=== PATIENT | female | born 1945 | race Caucasian/White ===

== ENCOUNTER → 2016-09-24 | Outpatient (CLI) | payer MEDICARE ==
--- NOTE | 2016-09-24 20:23 | WWHP ---
DATE OF DICTATION: 09/24/2016 CHIEF COMPLAINT: The patient is here for her routine gynecologic exam and mammogram. HISTORY OF PRESENT ILLNESS: This is a 71-year-old G2, P2 with an LMP of 2000. The patient is without gynecologic complaints and denies any postmenopausal bleeding. PAST MEDICAL HISTORY: Osteoporosis; she has declined medications for this. She denies any other medical problems. MEDICATIONS: Probiotic daily. ALLERGIES: NO KNOWN DRUG ALLERGIES. 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 SOCIAL HISTORY: She denies tobacco and drug use and has about one alcoholic drink per week. She has been a since 2006 and is not sexually active. 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 REVIEW OF SYSTEMS: Weight has been stable. She denies cardiac or GI problems. RESPIRATORY: She has recently gotten over a sinus infection. She denies maltreatment or falling. : She denies any significant problems with urinary leakage. PHYSICAL EXAM: Blood pressure 112/67. Height 5 feet 4-1/2 inches. Weight 134 pounds. Temperature 97.8, pulse 73. This is a well-developed, well-nourished white female who is alert and oriented x3, in no acute distress. HEENT is within normal limits. NECK: Supple without mass or thyromegaly. CHEST AND LUNGS: Clear to auscultation. HEART: Regular rate and rhythm. Breasts are without mass or discharge. Axillary exam is negative for adenopathy. BACK: Negative for CVA tenderness. ABDOMEN: Soft, nontender, without palpable masses. PELVIC EXAM: External genitalia reveal moderate atrophy without lesions. Cervix and vagina reveal mild to moderate atrophy without lesions. There is no evidence of prolapse. The uterus is mid position, non-gravid size and nontender. There are no palpable adnexal masses or tenderness. Rectovaginal exam is negative for mass or tenderness and is negative for occult blood. EXTREMITIES: Nontender. IMPRESSION: 1. A 71-year-old menopausal female with normal gynecologic exam. 2. History of osteoporosis; declining medication. PLAN: 1. Pap smear was performed. 2. Self breast examination was discussed. 3. Mammogram will be done today. 4. Osteoporosis management was discussed. I stressed the importance of adequate calcium, vitamin D and regular exercise. We have again discussed medical treatment for this, and she is declining this at this time. Will plan on repeating bone density test in one year. 5. She will consider flu shots in the fall, but she states she has not done this for many years and probably will not do this again. 6. She will return in one year.
--- NOTE | 2016-09-25 13:54 | MM ---
Reason for exam: screening (asymptomatic). Last mammogram was performed 1 year and 1 month ago. History: Patient is postmenopausal. Family history of premenopausal breast cancer in sister at age 44, breast cancer in mother at age 70, and breast cancer in aunt. Took hormonal contraceptives for 14 years beginning at age 20. Physical Findings: A clinical breast exam by your physician is recommended on an annual basis and results should be correlated with mammographic findings. MG 3D Screening Mammo W/Cad Bilateral CC and MLO view(s) were taken. Prior study comparison: September 05, 2015, bilateral MG 3d screening mammo w/cad. August 23, 2014, bilateral MG screening mammo w CAD. The breast tissue is heterogeneously dense. This may lower the sensitivity of mammography. Finding: There is a typically benign equal density, circumscribed oval mass in the upper outer quadrant, axillary tail position of the left breast, consistent with lymph nodes, increased number, for which a short term follow up is recommended. Increased nodularity left MLO axillary region, likely lymphadenopathy. ASSESSMENT: Probably benign, BI-RAD 3 RECOMMENDATION: Special view mammogram of the left breast in 6 months.
== END | disposition home or self-care (01) ==
LOC: WWCWWP 09:45
PROVIDERS: ATTEND Obstetrics & Gynecology
DX: Z12.31 Encounter for screening mammogram for malignant neoplasm of breast (principal)
CPT/HCPCS: 77063; G0202

== ENCOUNTER → 2017-03-27 | Outpatient (CLI) | payer MEDICARE ==
--- NOTE | 2017-03-27 11:08 | MM ---
Reason for exam: follow-up at short interval from prior study. Last mammogram was performed 6 months ago. History: Patient is postmenopausal. Family history of premenopausal breast cancer in sister at age 44, breast cancer in mother at age 70, and breast cancer in aunt. Took hormonal contraceptives for 14 years beginning at age 20. Physical Findings: Nurse did not find any significant physical abnormalities on exam. Prominent bilateral axilla nodes/or tissue, all soft, movable (nurse ts). MG 3D Diag Mammo W/Cad LT CC and MLO view(s) were taken of the left breast. Prior study comparison: September 24, 2016, bilateral MG 3d screening mammo w/cad. September 05, 2015, bilateral MG 3d screening mammo w/cad. The breast tissue is heterogeneously dense. This may lower the sensitivity of mammography. Stable benign calcifications. There is no discrete abnormality. These results were verbally communicated with the patient and result sheet given to the patient on 03/27/17. ASSESSMENT: Benign, BI-RAD 2 RECOMMENDATION: Return to routine screening mammogram schedule for both breasts. Back on schedule for September 2017.
== END | disposition home or self-care (01) ==
LOC: RADMAMWWP 10:11
PROVIDERS: ATTEND Obstetrics & Gynecology
DX: R92.8 Other abnormal and inconclusive findings on diagnostic imaging of breast (principal)
CPT/HCPCS: G0206; G0279

== ENCOUNTER → 2017-11-25 | Outpatient (CLI) | payer MEDICARE ==
[2017-11-25 14:10] VITALS: BP 115/66; PULSE 56; TEMP 97.8; BMI 20.9
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
--- NOTE | 2017-11-26 08:48 | BD ---
EXAMINATION TYPE: Axial Bone Density DATE OF EXAM: 11/25/2017 COMPARISON: 09/05/2015 CLINICAL HISTORY: Postmenopausal without hormone replacement therapy Height: 64.7 IN Weight: 133 LBS FRAX RISK QUESTIONS: History of Fracture in Adulthood: YES LT FOOT AGE 68 RISK FACTORS HISTORY OF: Active: YES Postmenopausal woman: AGE 55 MEDICATIONS: Additional Medications: CALCIUM, VIT D, EXAM MEASUREMENTS: Bone mineral densitometry was performed using the [employer] System. Bone mineral density as measured about the Lumbar spine is: ----- L1-L4(G/cm2): 0.998 T Score Values are as follows: ----- L2: -1.6 ----- L3: -1.5 ----- L4: -1.2 ----- L1-L4: -1.5 Bone mineral density has: Increased 2.7% since study of: 09/05/2015 Bone mineral density about the R hip (g/cm2): 0.752 Bone mineral density about the L hip (g/cm2): 0.751 T Score values are as follows: -----R Neck: -2.1 -----L Neck: -2.1 -----R Total: -1.8 -----L Total: -1.7 Bone mineral density has: Decreased -3.4% since study of: 09/05/2015 IMPRESSION: Osteopenia (T Score between -2.5 and -1). There is slightly increased risk of fracture and the patient may be considered for treatment. Re-Screen 2-5 years. NOTE: T-SCORE=SD OF THE YOUNG ADULT MEAN.
--- NOTE | 2017-11-27 11:06 | MM ---
Reason for exam: screening (asymptomatic). Last mammogram was performed 8 months ago. History: Patient is postmenopausal. Family history of premenopausal breast cancer in sister at age 44, breast cancer in mother at age 70, and breast cancer in aunt. Took hormonal contraceptives for 14 years beginning at age 20. Physical Findings: A clinical breast exam by your physician is recommended on an annual basis and results should be correlated with mammographic findings. MG 3D Screening Mammo W/Cad Bilateral CC and MLO view(s) were taken. Technologist: RT Brett (R)(M) Prior study comparison: March 27, 2017, left breast MG 3d diag mammo w/cad LT. September 24, 2016, bilateral MG 3d screening mammo w/cad. There are scattered fibroglandular densities. No significant changes when compared with prior studies. ASSESSMENT: Benign, BI-RAD 2 RECOMMENDATION: Routine screening mammogram of both breasts in 1 year.
--- NOTE | 2017-12-02 17:43 | P.PN ---
Progress Note - Text Progress Note Date: 12/02/17 OUTPATIENT FOLLOW-UP NOTE TEST(S)/RESULTS: bone density testing from age [age] showed osteopenia with minimal change from her 2016 bone density test. METHOD OF NOTIFICATION: patient was notified by phone. PATIENT COMMENTS: the patient understands these results and is not interested in medications at this time. DIAGNOSIS: osteopenia DISCUSSION: PLAN: I have stressed the importance of adequate calcium, vitamin D and regular exercise. She is declining medication for osteopenia. We will repeat this in 2 years. She will also return in one year for her annual exam.
== END | disposition home or self-care (01) ==
LOC: WWCWWP 13:29
PROVIDERS: ATTEND Obstetrics & Gynecology
DX: Z12.31 Encounter for screening mammogram for malignant neoplasm of breast (principal); M85.80 Other specified disorders of bone density and structure, unspecified site; Z78.0 Asymptomatic menopausal state
CPT/HCPCS: 77063; 77067; 77080

== ENCOUNTER → 2019-01-05 | Outpatient (CLI) | payer MEDICARE ==
[2019-01-05 10:45] VITALS: BP 119/71; PULSE 63; RESP 18; TEMP 98; BMI 20.9
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
--- NOTE | 2019-01-06 11:32 | MM ---
Reason for exam: screening (asymptomatic). Last mammogram was performed 1 year and 1 month ago. History: Patient is postmenopausal. Family history of premenopausal breast cancer in sister at age 44, breast cancer in mother at age 70, and breast cancer in aunt. Took hormonal contraceptives for 14 years beginning at age 20. Physical Findings: A clinical breast exam by your physician is recommended on an annual basis and results should be correlated with mammographic findings. MG 3D Screening Mammo W/Cad Bilateral CC and MLO view(s) were taken. Prior study comparison: November 25, 2017, bilateral MG 3d screening mammo w/cad. March 27, 2017, left breast MG 3d diag mammo w/cad LT. The breast tissue is heterogeneously dense. This may lower the sensitivity of mammography. There are benign appearing round calcifications in the right breast. There is no discrete abnormality. ASSESSMENT: Benign, BI-RAD 2 RECOMMENDATION: Routine screening mammogram of both breasts in 1 year.
== END | disposition home or self-care (01) ==
LOC: WWCWWP 10:31
PROVIDERS: ATTEND Obstetrics & Gynecology
DX: Z12.31 Encounter for screening mammogram for malignant neoplasm of breast (principal)
CPT/HCPCS: 77063; 77067

== ENCOUNTER → 2021-01-09 | Outpatient (CLI) | payer MEDICARE ==
[2021-01-09 13:09] VITALS: BP 150/83; PULSE 64; RESP 16; TEMP 98.3
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
--- NOTE | 2021-01-10 13:36 | BD ---
EXAMINATION TYPE: Axial Bone Density DATE OF EXAM: 01/09/2021 COMPARISON: 11/25/2017 CLINICAL HISTORY: Postmenopausal female. Height: 64 IN Weight: 125 LBS FRAX RISK QUESTIONS: History of Fracture in Adulthood: RT FOOT AGE 70 RISK FACTORS HISTORY OF: Active: YES Postmenopausal woman: AGE 55 Lost more than 2 inches in height since high school: YES 3" MEDICATIONS: Additional Medications: CALCIUM, VIT D, EXAM MEASUREMENTS: Bone mineral densitometry was performed using the [employer] System. Bone mineral density as measured about the Lumbar spine is: ----- L1-L4(G/cm2): 0.948 T Score Values are as follows: ----- L2: -2.2 ----- L3: -1.8 ----- L4: -1.6 ----- L1-L4: -1.9 Bone mineral density has: Decreased -5.3% since study of: 11/25/2017 Bone mineral density about the R hip (g/cm2): 0.711 Bone mineral density about the L hip (g/cm2): 0.733 T Score values are as follows: -----R Neck: -2.4 -----L Neck: -2.2 -----R Total: -2.1 -----L Total: -2.0 Bone mineral density has: Decreased -5.1% since study of: 11/25/2017 IMPRESSION: Osteopenia (T Score between -2.5 and -1) remains present. There remains slightly increased risk of fracture and the patient may be considered for treatment. Re-Screen 2-5 years. NOTE: T-SCORE=SD OF THE YOUNG ADULT MEAN.
--- NOTE | 2021-01-11 10:37 | MM ---
Reason for exam: screening (asymptomatic). Last mammogram was performed 2 years ago. History: Patient is postmenopausal. Family history of premenopausal breast cancer in sister at age 44, breast cancer in mother at age 70, and breast cancer in aunt. Took hormonal contraceptives for 14 years beginning at age 20. Physical Findings: A clinical breast exam by your physician is recommended on an annual basis and results should be correlated with mammographic findings. MG 3D Screening Mammo W/Cad Bilateral CC and MLO view(s) were taken. Prior study comparison: January 05, 2019, bilateral MG 3d screening mammo w/cad. November 25, 2017, bilateral MG 3d screening mammo w/cad. No significant changes when compared with prior studies. ASSESSMENT: Benign, BI-RAD 2 RECOMMENDATION: Routine screening mammogram of both breasts in 1 year.
--- NOTE | 2021-01-16 15:21 | P.PN ---
Progress Note - Text Progress Note Date: 01/16/21 OUTPATIENT FOLLOW-UP NOTE TEST(S)/RESULTS: Test results from 01/09/2021 include benign mammogram and bone density test showing osteopenia. METHOD OF NOTIFICATION: She was notified by phone. PATIENT COMMENTS: DIAGNOSIS: Benign mammogram and osteopenia. DISCUSSION: There has been little change compared to the 2016 bone density test. I have discussed how her hip measurements are close to the osteoporosis range. We have discussed the option of prescription medication to help strengthen bones , she is declining that at this time. I have stressed the importance of getting adequate calcium, vitamin D and regular exercise. PLAN: Repeat bone density test in 2 years. The patient was advised to return in 1-2 years for her well woman examination.
== END | disposition home or self-care (01) ==
LOC: WWCWWP 12:48
PROVIDERS: ATTEND Obstetrics & Gynecology
DX: Z12.31 Encounter for screening mammogram for malignant neoplasm of breast (principal); Z78.0 Asymptomatic menopausal state; M85.80 Other specified disorders of bone density and structure, unspecified site
CPT/HCPCS: 77063; 77067; 77080

== ENCOUNTER 2021-07-13 08:50 | Day surgery (SDC) | payer MEDICARE ==
[2021-07-11 09:34] VITALS: BMI 20.5
[~2021-07-13 08:50] MED LIST: LACTATED RINGERS 1,000 ML IV SCH; LIDOCAINE 1% (10MG/ML) FOR IV START INTRADERMA PRN
[2021-07-13 09:16] VITALS: TEMP 97.1
[2021-07-13] MEDS ORDERED: GLYCOPYRROLATE 0.2 MG/ML 2 ML VIAL ONE (09:34)
[2021-07-13] MEDS ORDERED: LIDOCAINE 1% INJ 10MG/ML (20 ML MDV) ONE (09:34)
[2021-07-13] MEDS ORDERED: PROPOFOL 10 MG/ML 20 ML VIAL IV ONE (09:34)
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
--- NOTE | 2021-07-13 10:05 | P.PCN ---
Date of Procedure: 07/13/21 Preoperative Diagnosis: Screening Postoperative Diagnosis: Redundant colon Procedure(s) Performed: Colonoscopy Anesthesia: MAC Surgeon: Cristy Grayson Pathology: none sent Condition: stable Disposition: same day Indications for Procedure: Patient presented today for screening colonoscopy. Last colonoscopy was 9 years ago. Denies blood in her stool. Denies colon cancer history in her family. Operative Findings: No polyps, no diverticulosis, overall redundant colon Description of Procedure: The patient was brought to the endoscopy suite and placed in left lateral decubitus position. Adequate sedation was achieved using conscious sedation. A digital rectal exam was performed and internal hemorrhoids were palpated. An endoscope was then placed in the rectum and advanced to the cecum as identified by landmarks including the appendiceal orifice and the ileocecal valve. The prep was good. The colonoscope was slowly withdrawn, examining for any mucosal abnormalities. The cecum, ascending, transverse, descending and sigmoid colon were visualized adequately. There were no obvious neoplastic lesions noted throughout the colon. There were no obvious polyps noted throughout the colon. The colon was notably redundant. There is no significant evidence of diverticulosis. Retroflexion was performed in the rectum and internal hemorrhoids were visible. Excess air was removed, the colonoscope withdrawn and the procedure terminated. The patient was then transferred to the recovery unit in stable condition. Repeat colonoscopy should be performed in 8 years.
[2021-07-13 10:08] VITALS: RESP 16
[2021-07-13 10:29] VITALS: BP 116/74; PULSE 79
== END 2021-07-13 10:45 | disposition home or self-care (01) ==
LOC: ORWHC2ENDO 08:50
PROVIDERS: ATTEND Surgery
DX: Z12.11 Encounter for screening for malignant neoplasm of colon (principal); K64.8 Other hemorrhoids
CPT/HCPCS: G0121; J2001; J2704

== ENCOUNTER → 2022-03-26 | Outpatient (CLI) | payer MEDICARE ==
[2022-03-26 13:33] VITALS: BP 151/71; PULSE 87; RESP 16; TEMP 97.7
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
--- NOTE | 2022-03-27 17:47 | MM ---
Reason for Exam: Screening (asymptomatic). Last mammogram was performed 1 year(s) and 2 month(s) ago. Patient History: Menarche at age 13. First Full-Term at age 22. Postmenopausal. Patient has history of breast feeding. Hormonal Contraceptives for 14 years from age 20 until age 42. Maternal aunt had breast cancer. Sister had breast cancer, age 44. Mother had breast cancer, age 70. Risk Values: Shu 5 year model risk: 7.8%. NCI Lifetime model risk: 17.1%. Prior Study Comparison: 11/25/2017 Bilateral Screening Mammogram, [facility]. 01/05/2019 Bilateral Screening Mammogram, [facility]. 01/09/2021 Bilateral Screening Mammogram, [facility]. Tissue Density: The breast tissue is heterogeneously dense. This may lower the sensitivity of mammography. Findings: Analyzed By CAD. Pattern appears stable. No suspicious groups of microcalcifications, spiculated or lobular masses, architectural distortion or other secondary signs of malignancy are mammographically apparent. Overall Assessment: Benign, BI-RAD 2 Management: Screening Mammogram of both breasts in 1 year. A negative mammogram report should not preclude additional follow up of suspicious palpable abnormalities. Patient should continue monthly self breast exam. A clinical breast exam by your physician is recommended on an annual basis and results should be correlated with mammographic findings. Electronically signed and approved by: Shant Miranda D.O. Radiologis
== END | disposition home or self-care (01) ==
LOC: RADMAMWWP 13:04
PROVIDERS: ATTEND Obstetrics & Gynecology
DX: Z12.31 Encounter for screening mammogram for malignant neoplasm of breast (principal); Z80.3 Family history of malignant neoplasm of breast; Z83.3 Family history of diabetes mellitus
CPT/HCPCS: 77063; 77067

== ENCOUNTER → 2022-04-09 | Outpatient (CLI) | payer MEDICARE ==
--- NOTE | 2022-04-09 11:16 | US ---
EXAMINATION TYPE: US pelvis complete transvag DATE OF EXAM: 04/09/2022 COMPARISON: NONE CLINICAL HISTORY: R10.2 PELVIC PAIN. TECHNIQUE: Transvaginal (TV) and Transabdominal (TA) . Transabdominal sonographic images of the pel vis were acquired. Transvaginal sonographic images were medically necessary to better assess the fol lowing anatomy: Date of LMP: post menopausal EXAM MEASUREMENTS: Uterus: 5.9 x 3.3 x 4.3 cm Endometrial Stripe: 0.2 cm Right Ovary: Obscured by overlying bowel gas/ atrophy Left Ovary: Obscured by overlying bowel gas/ atrophy 1. Uterus: at the lower uterine segment is a hypoechoic area measuring 0.9 x 0.9 x 0.9cm borders ar e ill defined and this may be caused by shadowing 2. Endometrium: 1mm of free fluid within, echogenic foci appears within fluid 3. Right Ovary: Obscured by overlying bowel gas/ atrophy 4. Left Ovary: Obscured by overlying bowel gas/ atrophy 5. Bilateral Adnexa: prominent vessels 6. Posterior cul-de-sac: wnl Heterogeneous anteverted uterus. No abnormal thickening of the endometrial stripe. Overall heterogene ity of the uterus with possible 8 mm peripheral subserosal fibroid. Tiny amount of fluid in the endom etrial canal with adjacent tiny cystic change noted on transvaginal imaging. No free fluid. Right ovary clearly identified. No suspicious adnexal solid or cystic masses are noted. IMPRESSION: No concerning pelvic masses.
--- NOTE | 2022-04-09 16:50 | P.PN ---
Progress Note - Text Progress Note Date: 04/09/22 OUTPATIENT FOLLOW-UP NOTE TEST(S)/RESULTS: Pelvic ultrasound done on 04/09/2022 showed a possible small uterine fibroid measuring 0.9 cm. Endometrial thickness was normal with a tiny amount of fluid in the endometrium measuring 1 mm. There were no adnexal masses noted. METHOD OF NOTIFICATION: She was notified by phone. PATIENT COMMENTS: DIAGNOSIS: Intermittent low abdominal pains. With this ultrasound I do not feel her pains are gynecologic in nature. DISCUSSION: She states she has been having some issues with constipation. I recommended increasing fiber and fluid intake. She can also use Senokot as directed if stools are hard. She was instructed to follow up with her PCP if she continues to have low abdominal pains or problems. PLAN: She was advised to return in one year for her annual well woman exam and as needed. As above.
== END | disposition home or self-care (01) ==
LOC: RADUSWWP 10:20
PROVIDERS: ATTEND Obstetrics & Gynecology
DX: R10.2 Pelvic and perineal pain (principal); R68.89 Other general symptoms and signs
CPT/HCPCS: 76830; 76856

== ENCOUNTER → 2023-04-24 | Outpatient (CLI) | payer MEDICARE ==
--- NOTE | 2023-04-24 12:08 | MR ---
EXAMINATION TYPE: MR brain wo con DATE OF EXAM: 04/24/2023 COMPARISON: NONE HISTORY: Memory loss, evaluate for CVA. TECHNIQUE: T1-weighted sagittal, T2, FLAIR, and diffusion axial, and T2 coronal coronal views of the brain are submitted. FINDINGS: There is no evidence of acute ischemia. The ventricles, basal cisterns, and sulci overlying the conv exities are consistent with moderate degenerative change. Focal periventricular areas of abnormal sig nal scattered throughout the white matter bilaterally are nonspecific but most typical remote white m atter microvascular disease.. There is no mass effect. Low-lying cerebellar tonsils near the level of foramen magnum. There are changes of chronic sinusitis . The orbits are symmetric.. Sella turcica has a normal appearance. Hyperostosis of the calvarium. No cerebellopontine angle mass. IMPRESSION: 1. No acute intracranial process. 2. 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 3. Chronic sinusitis
== END | disposition home or self-care (01) ==
LOC: RADMRIMAIN 10:17
PROVIDERS: ATTEND Psychiatry & Neurology Neurology
DX: I67.9 Cerebrovascular disease, unspecified (principal); I67.82 Cerebral ischemia; J32.9 Chronic sinusitis, unspecified
CPT/HCPCS: 70551

== ENCOUNTER → 2023-08-26 | Outpatient (CLI) | payer MEDICARE ==
[2023-08-26 11:38] VITALS: BP 115/74; PULSE 74; RESP 16; TEMP 97.7
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
== END ==
LOC: WWCWWP 11:06
PROVIDERS: ATTEND Obstetrics & Gynecology
DX: Z12.31 Encounter for screening mammogram for malignant neoplasm of breast (principal); Z78.0 Asymptomatic menopausal state; Z80.3 Family history of malignant neoplasm of breast; Z87.39 Personal history of other diseases of the musculoskeletal system and connective tissue
CPT/HCPCS: 77063; 77067; 77080

== ENCOUNTER → 2023-11-22 | Outpatient (CLI) | payer MEDICARE | END | disposition home or self-care (01) | LOC: LABWHC1 09:15 | DX: R41.3 Other amnesia (principal); R00.1 Bradycardia, unspecified | CPT/HCPCS: 36415; 80053; 80061; 82306; 83036; 83090; 83921; 85025 ==

== ENCOUNTER 2024-11-03 18:15 | Emergency (ER) | payer MEDICARE ==
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
[2024-11-03] MEDS: Acetaminophen-Codeine 300-30mg TAB PO STA (20:18)
--- NOTE | 2024-11-03 21:24 | CT ---
EXAMINATION TYPE: CT brain cspine wo con DATE OF EXAM: 11/03/2024 7:43 PM COMPARISON: MRI brain 04/24/2023 CLINICAL INDICATION: Female, 79 years old with history of fall; right shoulder and right foot pain fo llowing fall down 2 steps. Pt states missed a step landing on right shoulder. Pt denies LOC. Pt did h it head. Pt denies thinner use., pain TECHNIQUE: Brain: Multiple axial CT images of the brain were obtained without IV contrast. Cspine: Axial CT images from the skull base to the inferior aspect of T2 we obtained without intraven ous contrast. Coronal and sagittal reformatted images were also reviewed. . CT DLP: 1350.6 mGycm, Automated exposure control for dose reduction was used. FINDINGS: Brain: Extra-axial spaces: No abnormal extra-axial fluid collections. Ventricular system: Dilatation in proportion to cerebral atrophy. Cerebral parenchyma: Cerebral atrophy. No acute intraparenchymal hemorrhage or mass effect. The zhao -white junction is well differentiated. Cerebellum: Unremarkable. Mass effect: No evidence of midline shift. Intracranial vasculature: Atherosclerotic calcifications of the intracranial vessels. Soft tissues: Normal. Calvarium/osseous structures: No depressed skull fracture. Paranasal sinuses and mastoid air cells: Clear. Visualized orbits: Bilateral aphakia Cervical spine: Fracture: No acute fractures. Osseous structures: Mild osteopenia. Mild multilevel disc degenerative disease. Vertebral alignment: Within normal limits. Spinal canal/Neural Foramina: No evidence of significant spinal canal narrowing. No evidence for sign ificant neural foraminal stenosis. Neck soft tissues: Prevertebral soft tissues are within normal limits. Other: The airway is patent. The lung apices are clear. IMPRESSION: No acute intracranial process. No evidence of cervical spine fracture. Mild multilevel degenerative disc disease. [facility], , 11/03/2024 9:21 PM
--- NOTE | 2024-11-03 21:49 | XR ---
EXAMINATION TYPE: XR hand complete RT DATE OF EXAM: 11/03/2024 7:46 PM COMPARISON: None. CLINICAL INDICATION: Female, 79 years old with history of fall; PHH, pain TECHNIQUE: XR hand complete RT frontal and oblique views were obtained. FINDINGS: Normal alignment of the visualized joints. No acute osseous pathology is identified. No e vidence of significant soft tissue swelling. Mild multifocal degeneration changes with joint space na rrowing. Osteopenia. IMPRESSION: No acute osseous pathology. Mild multifocal degeneration throughout the joints of the hand. [facility], , 11/03/2024 9:47 PM
--- NOTE | 2024-11-03 21:51 | XR ---
EXAMINATION TYPE: XR elbow complete RT DATE OF EXAM: 11/03/2024 8:05 PM COMPARISON: None CLINICAL INDICATION: Female, 79 years old with history of fall; PHH, pain TECHNIQUE: XR elbow complete RT; elbow was examined in AP, lateral, and oblique projections. FINDINGS: No evidence of any acute osseous pathology, joint dislocation, or soft tissue swelling is n oted. Trace joint effusion is suggested. IMPRESSION: No evidence of acute fracture or dislocation. Trace right elbow joint effusion is suggested. [facility], , 11/03/2024 9:49 PM
--- NOTE | 2024-11-03 21:53 | XR ---
EXAMINATION TYPE: XR knee complete RT DATE OF EXAM: 11/03/2024 7:58 PM COMPARISON: None CLINICAL INDICATION: Female, 79 years old with history of fall; PHH, pain TECHNIQUE: XR knee complete RT frontal, oblique and crosstable views submitted. FINDINGS: No evidence of any acute osseous pathology or significant soft tissue swelling. Mild tric ompartmental osteoarthritic changes. Osteophyte formation involving the femoral condyles, tibial plat eau and patella. Mild medial knee compartment space narrowing. IMPRESSION: 1. No acute osseous pathology. 2. Mild tricompartmental osteoarthritic changes. [facility], , 11/03/2024 9:51 PM
--- NOTE | 2024-11-03 21:54 | XR ---
EXAMINATION TYPE: XR ankle complete RT DATE OF EXAM: 11/03/2024 8:01 PM COMPARISON: None CLINICAL INDICATION: Female, 79 years old with history of fall; PHH, pain TECHNIQUE: XR ankle complete RT; frontal, lateral and oblique projections. FINDINGS: There is no evidence of acute osseous pathology. No evidence of subluxation or dislocation. Kager's fat pad is intact. No radiopaque foreign bodies are identified. Mild swelling is suggested in the lat eral ankle compartment. IMPRESSION: 1. No evidence of acute fracture. 2. Mild subcutaneous swelling around the lateral ankle likely secondary to underlying soft tissue inj ury. [facility], , 11/03/2024 9:52 PM
--- NOTE | 2024-11-03 21:57 | XR ---
EXAMINATION TYPE: XR shoulder complete RT DATE OF EXAM: 11/03/2024 8:06 PM COMPARISON: None CLINICAL INDICATION: Female, 79 years old with history of fall; PHH, pain TECHNIQUE: XR shoulder complete RT; examined in AP, internally rotated and scapular Y projections. FINDINGS: There is shortening of the proximal humerus at the humeral head with mild cortical irregularity. No d iscrete dislocation. Osteopenia. The remaining portions of the visualized chest are unremarkable. IMPRESSION: Shortened appearance of the proximal humerus at the humeral head with associated cortical irregularit y is concerning for a fracture. No obvious dislocations. [facility], , 11/03/2024 9:55 PM
[2024-11-03] MEDS: ACET/COD 300 MG/30 MG STARTER PACK TAB BTL PO STA (22:48)
[2024-11-03 22:57] VITALS: BP 99/75; PULSE 66; RESP 17; TEMP 98.2
== END 2024-11-03 23:01 | disposition home or self-care (01) ==
LOC: EC 18:15
DX: S42.201A Unspecified fracture of upper end of right humerus, initial encounter for closed fracture (principal); W10.9XXA Fall (on) (from) unspecified stairs and steps, initial encounter
CPT/HCPCS: 73030; 73080; 73130; 73562; 73610; 72125; 70450; 99284; L3670